=== PATIENT | female | born 1995 | race American Indian/Alaskan Native ===

== ENCOUNTER 2017-04-15 20:14 | Emergency (ER) | payer MEDICAID ==
--- NOTE | 2017-04-15 21:21 | C.PDOC ---
History Of Present Illness Patient is a 21 y/o female who presents to the ED with a complaint of abdominal pain associated with vaginal discharge since earlier today. Patient notes vaginal discharge is brown in nature and menstrual period is 9 days late. Denies test, nausea, vomiting, diarrhea, smoking, or allergies. No other physical complaints at this time. Time Seen by Provider: 04/15/17 21:11 Chief Complaint (Nursing): Abdominal Pain History Per: Patient History/Exam Limitations: no limitations Onset/Duration Of Symptoms: Hrs (earlier today) Current Symptoms Are (Timing): Still Present Associated Symptoms: Urinary Symptoms (vaginal discharge) Recent travel outside of the [place]: No Past Medical History Reviewed: Historical Data, Nursing Documentation, Vital Signs Vital Signs: Last Vital Signs Temp 98.1 F 04/16/17 00:01 Pulse 86 04/16/17 00:01 Resp 18 04/16/17 00:01 BP 122/73 04/16/17 00:01 Pulse Ox 96 04/16/17 00:01 - Medical History PMH: No Chronic Diseases Surgical History: No Surg Hx Family History: States: No Known Family Hx - Social History Hx Tobacco Use: No Hx Alcohol Use: No Hx Substance Use: No - Immunization History Hx Tetanus Toxoid Vaccination: No Hx Influenza Vaccination: No Hx Pneumococcal Vaccination: No Review Of Systems Gastrointestinal: Positive for: Abdominal Pain. Negative for: Nausea, Vomiting , Diarrhea Genitourinary: Positive for: Vaginal Discharge (brown in nature) Physical Exam - Physical Exam Appears: Well, Non-toxic, No Acute Distress Skin: Normal Color, Warm, Dry Head: Atraumatic, Normacephalic Eye(s): bilateral: Normal Inspection Ear(s): Bilateral: Normal Oral Mucosa: Moist Lips: Normal Appearing Teeth: Normal Dentition Gingiva: Normal Appearing Neck: Normal Chest: Symmetrical Cardiovascular: Rhythm Regular, No Murmur Respiratory: Normal Breath Sounds, No Rales, No Rhonchi, No Wheezing Gastrointestinal/Abdominal: Normal Exam, Soft, No Tenderness Rectal: Deferred Extremity: Bilateral: Atraumatic Neurological/Psych: Oriented x3 Additional Physical Exam Comments: pelvic- no cmt/ no adnexal tenderness/ no foul discharge ED Course And Treatment - Laboratory Results Result Diagrams: 04/15/17 22:27 04/15/17 22:27 O2 Sat by Pulse Oximetry: 98 Progress Note: Urine culture and pregancy test ordered. Medical Decision Making Medical Decision Making: UA negative test negative G/C cervical cultures sent Disposition Doctor Will See Patient In The: Office Counseled Patient/Family Regarding: Diagnosis, Need For Followup - Disposition Referrals: [facility] [Outside] [facility] [Outside] [facility] [Outside] Disposition: HOME/ ROUTINE Disposition Time: 23:56 Condition: STABLE Additional Instructions: return if abd pain worsens Forms: [facility] (Ethiopian) - Clinical Impression Clinical Impression: Abdominal pain, Vaginal discharge - Scribe Statement The provider has reviewed the documentation as recorded by the Scribe Jen Gonzales All medical record entries made by the Scribe were at my direction and personally dictated by me. I have reviewed the chart and agree that the record accurately reflects my personal performance of the history, physical exam, medical decision making, and the department course for this patient. I have also personally directed, reviewed, and agree with the discharge instructions and disposition.
[2017-04-15 21:50] LABS: HCG,QUALITATIVE URINE NEGATIVE (NEGATIVE)
[2017-04-15 21:52] LABS: SQUAMOUS EPITHIAL 2 /hpf (0-5); URINE BACTERIA RARE (<OCC); URINE BILIRUBIN NEGATIVE (NEGATIVE); URINE BLOOD NEGATIVE (NEGATIVE); URINE CLARITY Clear (Clear); URINE COLOR Yellow (YELLOW); URINE GLUCOSE (UA) NORMAL (Normal); URINE LEUKOCYTE ESTERASE NEG Leu/uL (Negative); URINE NITRATE NEGATIVE (NEGATIVE); URINE PROTEIN NEGATIVE (NEGATIVE)
[2017-04-15 22:41] LABS: BASO % 0.5 % (0.0-2.0); EOS # 0.2 K/uL (0.0-0.7); EOS % 2.9 % (0.0-4.0); HEMOGLOBIN 14.6 g/dL (11.0-16.0); LYMPH # 3.1 K/uL (1.0-4.3); MEAN CELL VOLUME 90.6 fL (81.0-99.0); MEAN CORPUSCULAR HEMOGLOBIN 30.6 pg (27.0-31.0); MEAN CORPUSCULAR HGB CONC 33.8 g/dL (33.0-37.0); MEAN PLATELET VOLUME 11.7 fL (7.2-11.7); MONO # 0.4 K/uL (0.0-0.8); MONO % 6.7 % (0.0-10.0); NEUT # 2.3 K/uL (1.8-7.0); NEUT % 37.9 % (50.0-75.0); NRBC % 0.1 % (0.0-2.0); RBC 4.78 Mil/uL (3.80-5.20); RED CELL DISTRIBUTION WIDTH 12.3 % (11.5-14.5)
[2017-04-15 22:52] LABS: CALCIUM 8.7 mg/dl (8.6-10.4); GFR AFRICAN-AMERICAN > 60; GFR NON-AFRICAN AMERICAN > 60
[2017-04-15 22:59] LABS: ALB/GLOB RATIO 1.1 (1.0-2.1); ALBUMIN 4.3 g/dL (3.5-5.0); ALT/SGPT 99 U/L (9-52); AST/SGOT 70 U/L (14-36); BLOOD UREA NITROGEN 16 mg/dL (7-17)
[2017-04-16 00:08] VITALS: BP 122/73; PULSE 86; RESP 18; TEMP 98.1
[2017-04-16 06:30] VITALS: O2SAT 98
== END 2017-04-16 00:08 | disposition home or self-care (01) ==
LOC: C.ER 20:14
DX: N89.8 Other specified noninflammatory disorders of vagina (principal); R10.9 Unspecified abdominal pain

== ENCOUNTER 2018-07-25 21:39 | Emergency (ER) | payer BC ==
[2018-07-25 22:04] VITALS: BP 122/85; PULSE 83; RESP 20; TEMP 98.3; O2SAT 98
[2018-07-25] MEDS ORDERED: cefTRIAXone 250 MG, Water For Injection 20 ML IM ONE (22:48)
--- NOTE | 2018-07-25 22:49 | C.PDOC ---
History Of Present Illness 22 year old female asking for empiric treatment for STD. Patient related high risk unprotected sex recently. She reports she has had lower pelvic pain worsening with walking, claims to have vaginal spotting with mucous. Denies vaginal discharge. Time Seen by Provider: 07/25/18 22:34 Chief Complaint (Nursing): Abdominal Pain History Per: Patient History/Exam Limitations: no limitations Onset/Duration Of Symptoms: Days Current Symptoms Are (Timing): Still Present Location Of Pain/Discomfort: Other (Pelvic) Associated Symptoms: Other (vaginal spotting with mucous, no vaginal discharge) Exacerbating Factors: Walking Alleviating Factors: None Recent travel outside of the [place]: No Past Medical History Reviewed: Historical Data, Nursing Documentation, Vital Signs Vital Signs: Last Vital Signs Temp 98.3 F 07/25/18 21:47 Pulse 83 07/25/18 21:47 Resp 20 07/25/18 21:47 BP 122/85 07/25/18 21:47 Pulse Ox 98 07/25/18 21:47 Family History: States: Unknown Family Hx - Social History Hx Tobacco Use: No Hx Alcohol Use: No Hx Substance Use: No - Immunization History Hx Tetanus Toxoid Vaccination: No Hx Influenza Vaccination: No Hx Pneumococcal Vaccination: No Review Of Systems Constitutional: Negative for: Fever, Chills Cardiovascular: Negative for: Chest Pain, Palpitations Respiratory: Negative for: Cough, Shortness of Breath Gastrointestinal: Negative for: Nausea, Vomiting Genitourinary: Positive for: Pelvic Pain, Other (Vaginal spotting with mucous). Negative for: Vaginal Discharge Neurological: Negative for: Weakness, Numbness Physical Exam - Physical Exam Appears: Non-toxic, Other (Thin black female) Skin: Normal Color, Warm Head: Atraumatic, Normacephalic Oral Mucosa: Moist Chest: Symmetrical, No Tenderness Cardiovascular: Rhythm Regular Respiratory: Normal Breath Sounds, No Rales, No Rhonchi, No Wheezing Gastrointestinal/Abdominal: Soft, No Tenderness Back: No CVA Tenderness Pelvic: Other (Patient deferred) Neurological/Psych: Oriented x3, Normal Speech ED Course And Treatment - Laboratory Results Result Diagrams: 07/25/18 23:18 07/25/18 23:18 Lab Interpretation: Abnormal (UA 182 WBC's) Urine POC: Negative O2 Sat by Pulse Oximetry: 98 (room air) Pulse Ox Interpretation: Normal - Radiology CXR: Interpreted by Me CXR Interpretation: Yes: No Acute Disease - Other Rad abd x 2 X-Ray: Interpreted by Me (+FOS) Reevaluation Time: 00:01 Reassessment Condition: Improved Medical Decision Making Medical Decision Making: empiric tx for GC/Chlamydia per pt request and HPI low susp of PID GC/Chlamydia pending UTI more likely Rocephin and Azithromycin given in ED should be adequate for UTI tx no further PO Abx indicated at this time. Belly Colic +FOS on obstr series empiric laxative tx in AM (after azithro digested) Disposition Doctor Will See Patient In The: Office Counseled Patient/Family Regarding: Studies Performed, Diagnosis - Disposition Disposition: HOME/ ROUTINE Disposition Time: 00:02 Condition: GOOD Forms: [facility] (Angolan) - Clinical Impression Clinical Impression: Pelvic pain, UTI (urinary tract infection) - Scribe Statement The provider has reviewed the documentation as recorded by the Scribe Flip Feliciano All medical record entries made by the Scribe were at my direction and personally dictated by me. I have reviewed the chart and agree that the record accurately reflects my personal performance of the history, physical exam, m edical decision making, and the department course for this patient. I have also personally directed, reviewed, and agree with the discharge instructions and disposition.
[2018-07-25 23:21] LABS: BASO % 0.4 % (0.0-2.0); EOS # 0.1 K/uL (0.0-0.7); HEMOGLOBIN 13.6 g/dL (11.0-16.0); LYMPH # 2.3 K/uL (1.0-4.3); LYMPH % 37.1 % (20.0-40.0); MEAN CELL VOLUME 89.9 fL (81.0-99.0); MEAN CORPUSCULAR HEMOGLOBIN 30.5 pg (27.0-31.0); MEAN PLATELET VOLUME 10.7 fL (7.2-11.7); MONO # 0.4 K/uL (0.0-0.8); MONO % 5.7 % (0.0-10.0); NEUT # 3.4 K/uL (1.8-7.0); NEUT % 54.8 % (50.0-75.0); NRBC % 0.1 % (0.0-2.0); RBC 4.45 Mil/uL (3.80-5.20); RED CELL DISTRIBUTION WIDTH 13.4 % (11.5-14.5); WHITE BLOOD COUNT 6.3 K/uL (4.8-10.8)
[2018-07-25 23:28] LABS: HCG,QUALITATIVE URINE NEGATIVE (NEGATIVE)
[2018-07-25] MEDS ORDERED: CEFTRIAXONE 250 MG IM ONE (23:30)
[2018-07-25] MEDS ORDERED: [UNRECOGNIZED DRUG - OTHER] IM ONE (23:30)
[2018-07-25 23:33] LABS: ALB/GLOB RATIO 1.4 (1.0-2.1); ALBUMIN 4.2 g/dL (3.5-5.0); ALT/SGPT 8 U/L (9-52); AST/SGOT 17 U/L (14-36); BLOOD UREA NITROGEN 14 mg/dL (7-17); CALCIUM 9.1 mg/dl (8.6-10.4); GFR NON-AFRICAN AMERICAN > 60; LIPASE 60 U/L (23-300)
[2018-07-25 23:34] LABS: SQUAMOUS EPITHIAL 4 /hpf (0-5); URINE BACTERIA RARE (<OCC); URINE BILIRUBIN NEGATIVE (NEGATIVE); URINE BLOOD 1+ (NEGATIVE); URINE CLARITY Hazy (Clear); URINE COLOR Yellow (YELLOW); URINE GLUCOSE (UA) NORMAL (Normal); URINE LEUKOCYTE ESTERASE 3+ Leu/uL (Negative); URINE PROTEIN NEGATIVE (NEGATIVE)
[2018-07-26] MEDS ORDERED: Magnesium Citrate Oral SOL (300 ml) PO ONE (00:10)
[2018-07-26] MEDS ORDERED: Magnesium Citrate Oral SOL (300 ml) ONE (00:17)
--- NOTE | 2018-07-26 09:52 | RAD ---
Date of service: 07/25/2018 PROCEDURE: Radiographs of the chest and abdomen (obstructive series) HISTORY: belly colic x 3 days COMPARISON: No prior. TECHNIQUE: AP radiograph of the chest, with upright and supine radiographs of the abdomen. 3 views obtained. FINDINGS: CHEST: Lungs: Clear. Cardiovascular: Normal size heart. No pulmonary vascular congestion. No aortic atherosclerotic calcification present Pleura: No pleural fluid. No pneumothorax. Other findings: None. ABDOMEN AND PELVIS: Bowel: There is gaseous distension of the splenic flexure of colon. There is moderate amount of stool in the colon and rectum. No evidence of mechanical obstruction. Free air: None. Bones: Unremarkable. Other findings: None. IMPRESSION: Constipation. Gaseous distension of the splenic flexure of colon. No evidence for bowel obstruction. Clear lungs.
== END 2018-07-26 00:47 | disposition home or self-care (01) ==
LOC: C.ER 21:39
DX: N39.0 Urinary tract infection, site not specified (principal); R10.2 Pelvic and perineal pain
CPT/HCPCS: 74022; 80053; 81001; 83690; 84703; 85025; 87491; 87591; 96372; 99284; J0696